=== PATIENT | female | born 1945 | race Caucasian/White ===

== ENCOUNTER 2019-12-10 16:46 | Outpatient (CLI) | payer MEDICARE, OTHER ==
--- NOTE | 2019-12-11 09:34 | XRAY Report ---
PROCEDURE: Calcaneus RT INDICATIONS: ACUTE R CALCANEUS PAIN TECHNIQUE: Two views of the calcaneus were acquired. COMPARISON: None FINDINGS: Bones: No fractures or dislocations. No suspicious bony lesions. Plantar calcaneal spur. Soft tissue swelling of the plantar hindfoot IMPRESSION: Soft tissue swelling of the plantar hindfoot. Plantar calcaneal spur Reviewed by: Ashok Noble MD on 12/11/2019 9:33 AM PDT Approved by: Ashok Noble MD on 12/11/2019 9:33 AM PDT Station ID: [id number]
== END 2019-12-10 16:47 | disposition home or self-care (01) ==
LOC: DI 16:46
PROVIDERS: ATTEND Podiatrist
DX: M79.9 Soft tissue disorder, unspecified (principal)